=== PATIENT | male | born 1975 | race Caucasian/White ===

== ENCOUNTER 2022-06-09 17:56 | Emergency (ER) | payer BC ==
[2022-06-09] MEDS ORDERED: Iopamidol 755 MG/ML 500 ML Multipack Bottle IVPUSH STA (19:04)
[2022-06-09] MEDS ORDERED: fentaNYL 50 MCG/ML SDV IVPUSH ONE (19:09)
[2022-06-09] MEDS ORDERED: Morphine 4 MG/ML VIAL IVPUSH ONE (19:28)
[2022-06-09 19:32] LABS: CARBON DIOXIDE,CO2 23.9 mmol/L (21.0-32.0); POTASSIUM,K 3.5 mmol/L (3.5-5.1)
[2022-06-09] MEDS ORDERED: Dexamethasone 10 MG/ML SDV IVPUSH ONE (20:18)
[2022-06-09] MEDS ORDERED: LORazepam 2 MG/ML SDV IVPUSH ONE (20:18)
== END 2022-06-09 22:36 | disposition home or self-care (01) ==
LOC: MW.ED 17:56
DX: R07.9 Chest pain, unspecified (principal); R53.1 Weakness; R10.32 Left lower quadrant pain; G89.29 Other chronic pain; F45.8 Other somatoform disorders; R51.9 Headache, unspecified; I10 Essential (primary) hypertension; E78.00 Pure hypercholesterolemia, unspecified; K21.9 Gastro-esophageal reflux disease without esophagitis; F17.210 Nicotine dependence, cigarettes, uncomplicated; Z79.899 Other long term (current) drug therapy; Z20.822 Contact with and (suspected) exposure to COVID-19
CPT/HCPCS: 36415; 70450; 71275; 74174; 80053; 81003; 84443; 84484; 85025; 85610; 85730; 87635; 93005; 96374; 96375; 99285; J1100; J2060; J2270; J3010; Q9967; U0002

== ENCOUNTER 2022-08-26 17:17 | Emergency (ER) | payer BC ==
[2022-08-26 20:18] LABS: BLOOD UREA NITROGEN,BUN 14 mg/dL (7.0-18.0); CARBON DIOXIDE,CO2 28.5 mmol/L (21.0-32.0); CHLORIDE,CL 103 mmol/L (98-107); GLUCOSE RANDOM 108 mg/dL (74-106); LIPASE 129 U/L (73-393); POTASSIUM,K 3.9 mmol/L (3.5-5.1); SODIUM,NA 142 mmol/L (136-148)
[2022-08-26 20:32] LABS: ESTIMATED GFR 83 mL/min (>60)
[2022-08-26] MEDS: LORazepam 1 MG Tab PO ONE (20:50)
== END 2022-08-26 21:50 | disposition home or self-care (01) ==
LOC: MW.ED 17:17
DX: F41.9 Anxiety disorder, unspecified (principal); I10 Essential (primary) hypertension; Z79.899 Other long term (current) drug therapy
CPT/HCPCS: 36415; 71046; 80053; 83690; 84443; 84484; 85025; 85652; 99284; A9270; 93010; 99283